=== PATIENT | male | born 1985 | race Two or more races ===

== ENCOUNTER 2019-05-25 06:11 | Day surgery (SDC) | payer OTHER ==
[~2019-05-25] VITALS: Ht 182.9 cm; Wt 127.0 kg
[2019-05-25] VITALS (11 sets, daily range): BP systolic 116–144; BP diastolic 72–87
[~2019-05-25 06:11] MED LIST: ceFAZolin 1gm IVPB IVPB ONE; celeBREX 200mg Cap **SURGERY PATIENTS ONLY ORAL ONE; oxyCONTIN 20mg tab ORAL ONE
[2019-05-25] MEDS ORDERED: XANAX0.25 MG ORAL (07:00)
--- NOTE | 2019-05-25 07:13 | Operative Note - PDOC ---
Operative Note Operative Note Pre-op Diagnosis: right knee internal deragment Procedure: see op report Post-op Diagnosis: same as pre-op plus Operative Findings: consistent w/pre-op dx studies Anesthesia: MAC Specimen: none Complications: none Condition: stable Estimated Blood Loss: none Implant(s) used?: No Pb Lan MD May 25, 2019 07:13
--- NOTE | 2019-05-25 07:13 | Pre-Procedure Note/Attestation ---
Pre-Procedure Note/Attestation Complete Prior to Procedure Planned Procedure: right Procedure Narrative: knee diagnostic arthroscopy, possible menisectomy, synovectomy, chondroplasty Indications for Procedure Pre-Operative Diagnosis: right knee internal deragment Attestation I attest that I discussed the nature of the procedure; its benefits; risks and complications; and alternatives (and the risks and benefits of such alternatives ), prior to the procedure, with the patient (or the patient's legal b2b sales representative). I attest that, if there was a reasonable possibility of needing a blood transfusion, the patient (or the patient's legal b2b sales representative) was given the [facility] standardized written summary, pursuant to the Peng Darrell Blood Safety Act ([place] Health and Safety Code # 1645, as amended). I attest that I re-evaluated the patient just prior to the surgery and that there has been no change in the patient's H&P, except as documented below: Pb Lan MD May 25, 2019 07:13
[2019-05-25] MEDS ORDERED: HYDROcodone/Acetamin 5/325 tab ORAL PRN (07:15)
[2019-05-25] MEDS ORDERED: D5 1/2NS 1,000 ML IV SCH (07:15)
[2019-05-25] MEDS ORDERED: HYDROmorphone 1mg/ml Carpuject SUBQ PRN (07:15)
[2019-05-25] MEDS ORDERED: Tylenol #3 tab (300mg/30mg) ORAL PRN (07:15)
[2019-05-25] MEDS ORDERED: fentaNYL 100 mcg/2 mL IV ONE (09:15)
[2019-05-25] MEDS ORDERED: Midazolam 2mg/2ml Inj ONE (09:15)
[2019-05-25] MEDS ORDERED: Lidocaine 1% MPF 10mg/ml 5ml ONE (09:58)
[2019-05-25] MEDS ORDERED: Ketorolac 30mg Inj ONE ×2 (09:58→10:58)
[2019-05-25] MEDS ORDERED: Propofol 200mg/20ml IV ONE (09:58)
[2019-05-25] MEDS ORDERED: LR 1000ml ONE (10:00)
[2019-05-25] MEDS ORDERED: NS Irrig 4000ml IRRIG ONE ×3 (10:00→11:50)
[2019-05-25] MEDS ORDERED: NS Irrig 1000ml ONE (10:00)
[2019-05-25] MEDS ORDERED: Bupivacaine 0.25% Inj 30ml INJ ONE (10:58)
[2019-05-25] MEDS ORDERED: Lidocaine 1% 10mg/ml/Epi 0.005mg/ml 30ml vial INJ ONE (10:58)
[2019-05-25] MEDS ORDERED: Kenalog-40 1ml Vial ONE (10:58)
[2019-05-25] MEDS ORDERED: Duramorph PF 5mg/10ml amp ONE (10:58)
[2019-05-25] MEDS ORDERED: LR 1000ml 1,000 ML IVLG SCH (11:33)
[2019-05-25] MEDS ORDERED: DiphenhydrAMINE 50mg/ml Inj IVP PRN (11:45)
[2019-05-25] MEDS ORDERED: Meperidine 25mg/0.5ml Inj (FOR RIGORS ONLY) IV PRN (11:45)
[2019-05-25] MEDS ORDERED: Metoclopramide 10mg/2ml Inj IVP PRN (11:45)
[2019-05-25] MEDS ORDERED: Ketorolac 30mg Inj IV PRN (11:45)
--- NOTE | 2019-05-25 11:59 | Immediate Post-Op Evaluation ---
Immediate Post-Op Evalulation Immediate Post-Op Evalulation Procedure: R knee arthroscopy meniscectomy Date of Evaluation: May 25, 2019 Time of Evaluation: 11:58 IV Fluids: 800 Blood Products: none Estimated Blood Loss: min Urinary Output: none Blood Pressure Systolic: 142 Blood Pressure Diastolic: 76 Pulse Rate: 78 Respiratory Rate: 20 O2 Sat by Pulse Oximetry: 99 Temperature (Fahrenheit): 97.6 Pain Score (1-10): 1 Nausea: No Vomiting: No Complications none Patient Status: reacts, patent, none Hydration Status: adequate Pernell Delgado MD May 25, 2019 11:59
--- NOTE | 2019-05-25 16:45 | Operative Note - Dictated ---
DATE OF OPERATION: 05/25/2019 PREOPERATIVE DIAGNOSIS: Right knee internal derangement. POSTOPERATIVE DIAGNOSES: 1. Right knee hypertrophic fat pad/synovial tissue with medial plica. 2. Grade 1 chondral damage medial femoral condyle. PROCEDURE: 1. Right knee diagnostic arthroscopy. 2. Right knee medial and lateral patellofemoral compartment synovectomy. SURGEON: Pb Lan M.D. ANESTHESIA: MAC. INDICATION FOR PROCEDURE: The patient is a pleasant gentleman who has had progressive right knee pain. He failed conservative treatment. He elected to undergo right knee diagnostic arthroscopy, meniscectomy, synovectomy, chondroplasty based on intraoperative findings. Risks, limitations, expectations, and complications of procedure were discussed in detail. All questions were addressed. DESCRIPTION OF PROCEDURE: After informed consent was obtained, the patient was brought to the operating room. The patient was placed under monitored anesthesia control. Right leg was prepped and draped in a sterile manner. Time-out was performed. An inferolateral stab incision was then made. Trocar was introduced into the knee joint. At this point, there was significant hypertrophic synovial tissue in patellofemoral compartment. There was also evidence of medial plica. Medial compartment was entered. There was hypertrophic synovial tissue making visualization somewhat difficult. Medial working portal was established. Synovectomy of the anterior compartment, anterior portion of the medial compartment, intercondylar notch, lateral compartment was performed. The medial compartment was entered free of meniscal chondral damage. The ACL was probed, noted to be intact. Lateral compartment was entered free of any meniscal chondral damage. At this point, the shaver was placed in the patellofemoral compartment and synovectomy and excision of medial plica was completed. Once this was done, there was evidence of grade 2 softening of the medial femoral condyle. Once this was done, the instruments were removed. Portal sites were closed using 3-0 Monocryl sutures. Steri-Strips and a sterile dressing were applied. ESTIMATED BLOOD LOSS: None. COMPLICATIONS: None. SPECIMENS: None. IMPLANTS: None. Pb Lan M.D. DR: JOLANTA JOB#: [id number] CC:
--- NOTE | 2019-05-25 16:49 | 48 Hour Post Anesthesia Eval ---
Post Anesthesia Evaluation Procedure: R knee arthroscopy meniscectomy Date of Evaluation: May 25, 2019 Time of Evaluation: 13:24 Blood Pressure Systolic: 116 0: 72 Pulse Rate: 85 Respiratory Rate: 20 Temperature (Fahrenheit): 97.6 O2 Sat by Pulse Oximetry: 98 Airway: patent Nausea: No Vomiting: No Pain Intensity: 2 Hydration Status: adequate Cardiopulmonary Status: stable Mental Status/LOC: patient returned to baseline Follow-up Care/Observations: n/a Post-Anesthesia Complications: none Follow-up care needed: ready to discharge Pernell Delgado MD May 25, 2019 16:49
--- NOTE | 2019-05-25 16:55 | Anethesia Preoperative Eval ---
Anesthesia Pre-op PMH/ROS General Date of Evaluation: May 25, 2019 Time of Evaluation: 09:15 Anesthesiologist: Danny ASA Score: ASA 2 Mallampati Score Class I : Soft palate, uvula, fauces, pillars visible Class II: Soft palate, uvula, fauces visible Class III: Soft palate, base of uvula visible Class IV: Only hard plate visible Mallampati Classification: Class II Surgeon: Riky Diagnosis: R knee pain Surgical Procedure: R knee scope Anesthesia History: none Social History: current smoker Family History: no anesthesia problems Allergies: Coded Allergies: No Known Allergies (Unverified , 05/25/19) Medications: see eMAR Patient NPO?: Yes Past Medical History Cardiovascular: Denies: HTN, CAD, AR, valve dz, arrhythmia, other Pulmonary: Denies: asthma, COPD, SHAD, other Gastrointestinal/Genitourinary: Reports: GERD; Denies: CRI, ESRD, other Neurologic/Psychiatric: Denies: dementia, CVA, depression/anxiety, TIA, other Endocrine: Denies: DM, hypothyroidism, steroids, other HEENT: Denies: cataract (L), cataract (R), glaucoma, KALTAG (L), KALTAG (R), other Hematology/Immune: Denies: anemia, DVT, bleeding disorder, other Musculoskeletal/Integumentary: Denies: OA, RA, DJD, DDD, edema, other Other: obesity PMH Narrative: as above PSxH Narrative: See H&P Anesthesia Pre-op Phys. Exam Physician Exam Last Vital Signs Date Time Temp Pulse Resp B/P (MAP) Pulse Ox O2 Delivery O2 Flow Rate FiO2 05/25/19 13:20 80 20 129/74 98 Room Air 05/25/19 12:50 97.2 05/25/19 12:15 6 Constitutional: NAD Neurologic: CN 2-12 intact Cardiovascular: RRR, no M/R/G Respiratory: CTA Gastrointestinal: S/NT/ND Airway Exam Mallampati Score: Class II MO: full Neck: flexible ROM: full Teeth: intact Dentures: no upper, no lower Anesthesia Pre-op A/P Labs see chart Studies Pre-op Studies: EKG - NSR Risk Assessment & Plan Assessment: ASA 2 Plan: GA with LMA Status Change Before Surgery: No Pre-Antibiotics Drug: Ancef 2gr Given Within 1 Hr of Incision: Yes Time Given: 10:25 Pernell Delgado MD May 25, 2019 16:55
== END 2019-05-25 13:25 | disposition home or self-care (01) ==
LOC: SUR 06:11
DX: M79.4 Hypertrophy of (infrapatellar) fat pad (principal); K21.9 Gastro-esophageal reflux disease without esophagitis; E66.9 Obesity, unspecified; Z68.38 Body mass index [BMI] 38.0-38.9, adult
CPT/HCPCS: 29876; J0690; J1885; J2250; J2405; J2704; J3010; J3301; J3490; J7120; 94003; 94150